=== PATIENT | male | born 1935 | race Caucasian/White ===

== ENCOUNTER 2019-05-26 07:46 | Outpatient (CLI) | payer MEDICARE | END 2019-05-26 23:59 | disposition home or self-care (01) | LOC: CVU 07:46 | PROVIDERS: ATTEND Internal Medicine | DX: I70.203 Unspecified atherosclerosis of native arteries of extremities, bilateral legs (principal); I25.84 Coronary atherosclerosis due to calcified coronary lesion; R60.0 Localized edema | CPT/HCPCS: 93922; 93925; 93970 ==

== ENCOUNTER 2020-08-20 08:23 | Inpatient (IN) | payer MEDICARE ==
[~2020-08-20] VITALS: Ht 175.3 cm; Wt 78.7 kg
--- NOTE | 2020-08-20 08:35 | NUR ---
THIS IS A 85 YO M BIB EMS FROM HOME W/ C/O ONSET HEMATAEMESIS AND HEMATCHEZIA STARTING THIS MORNING AT 0700. PT DENIES INJURY, OR HX OF SAME. PT REPORTS EMESIS BRIGHT RED AND STOOL BRIGHT RED MIXED W/ BLACK. PT REPROTS TAKING DAILY ASPIRIN AND IBUPROFEN. PT TACHYCARDIC, OTHER VS WDL. RESP EVEN AND UNLABORED, NADN. PT RESTING ON GURNEY W/ CALL LIGHT IN REACH, SIDE RAILS UPX2, AWAITING ED EVAL.
[2020-08-20] MEDS ORDERED: PANTOPRAZOLE 80 MG in SODIUM CHLORIDE 0.9% 50 ML IVPB ONE (09:00)
[2020-08-20] MEDS ORDERED: SODIUM CHLORIDE 0.9% 1,000ML IVBOLUS ONE (09:00)
[2020-08-20] MEDS ORDERED: ONDANSETRON 2MG/ML, 2ML IVPush ONE (09:00)
[2020-08-20] MEDS ORDERED: OCTREOTIDE 100MCG/ML, 1ML (0.1MG/ML) IV ONE (09:00)
[2020-08-20] MEDS ORDERED: SODIUM CHLORIDE FLUSH 10ML SYR IVF ONE (09:00)
[2020-08-20] MEDS ORDERED: OCTREOTIDE 100MCG/ML, 1ML (0.1MG/ML) ONE (09:09)
[2020-08-20] MEDS ORDERED: ONDANSETRON 2MG/ML, 2ML ONE (09:10)
--- NOTE | 2020-08-20 09:15 | NUR ---
JESÚS VASQUEZ FROM PHARMACY.
--- NOTE | 2020-08-20 09:15 | NUR ---
2ND PIV STARTED B [employer] STUDENT AND LABS DRAWN UNDER SUPERVISION OF THIS RN.
[2020-08-20 09:19] LABS: MEAN CORPUSCULAR HEMOGLOBIN 32.8 pg (27.5-34.5); MEAN CORPUSCULAR HGB CONC 33.3 g/dL (33.2-36.2); MEAN PLATELET VOLUME 8.5 fL (7.4-10.4); PLATELET COUNT 834 x10^3/uL (130-400); RED BLOOD COUNT 4.56 x10^6/uL (4.38-5.82); RED CELL DISTRIBUTION WIDTH 17.9 % (9.4-14.8)
--- NOTE | 2020-08-20 09:22 | NUR ---
PT MEDICATED PER EMAR. AWAITING MEDS FROM PHARMACY.
--- NOTE | 2020-08-20 09:23 | NUR ---
PT TO RAD.
[2020-08-20 09:26] LABS: ALANINE AMINOTRANSFERASE 29 U/L (12-78); ALBUMIN 3.5 g/dL (3.4-5.0); ANION GAP 9 mmol/L (5-15); CALCIUM 8.7 mg/dL (8.5-10.1); CHLORIDE 104 mmol/L (98-107); CREATININE 1.08 mg/dL (0.7-1.3)
[2020-08-20 09:29] LABS: ALKALINE PHOSPHATASE 62 U/L (45-117); BILIRUBIN,TOTAL 1.2 mg/dL (0.2-1.0); TOTAL PROTEIN 6.7 g/dL (6.4-8.2)
[2020-08-20 09:37] LABS: INTERNATIONAL NORMALIZED RATIO 1.24 (0.93-1.1); PROTHROMBIN TIME 13.1 Seconds (9.6-11.5)
[2020-08-20] MEDS: PANTOPRAZOLE 80 MG in SODIUM CHLORIDE 0.9% 100 ML IV SCH ×2 (09:59→19:39)
[2020-08-20] MEDS: OCTREOTIDE 500 MCG in SODIUM CHLORIDE 0.9% 99 ML IV PRN ×2 (10:10→19:39)
[2020-08-20 10:21] LABS: MD YES
[2020-08-20 10:22] LABS: BAND#(MANUAL) 0.85 x10^3/uL; BANDS%(MANUAL) 6 % (0-7); LYMPH#(MANUAL) 0.42 x10^3/uL (1-3.4); LYMPHS% (MANUAL) 3 % (22-44); MONOS#(MANUAL) 0.85 x10^3/uL (0.3-2.7); MONOS% (MANUAL) 6 % (2-9); SEG#(MANUAL) 11.99 x10^3/uL (1.8-6.8); SEGS% (MANUAL) 85 % (42-75)
[2020-08-20 10:23] LABS: <PLATELET ESTIMATE> INCREASED; <RBC MORPHOLOGY> NORMAL; LARGE PLATELETS 1+
[2020-08-20] MEDS ORDERED: HYDROCHLOROTHIAZIDE (10:37)
[2020-08-20] MEDS ORDERED: ASPI81TA45 PO (10:37)
[2020-08-20] MEDS ORDERED: THYROID (10:37)
--- NOTE | 2020-08-20 12:53 | NUR ---
HOSPITAL BED REQUESTED.
--- NOTE | 2020-08-20 13:10 | NUR ---
REPORT GIVEN TO RUTH STREETER. PT RESTING ON Tasted MenuRNEY W/ CALL LIGHT IN REACH, RESP EVEN AND UNLABORED, MAMIE.
[2020-08-20] MEDS ORDERED: ONDANSETRON 2MG/ML, 2ML IVPush PRN (13:30)
[2020-08-20] MEDS ORDERED: ACETAMINOPHEN 325 MG TABLET PO PRN (13:30)
--- NOTE | 2020-08-20 13:43 | NUR ---
RECEIVED REPORT FROM FERDINAND WARD. PT RESTING ON PORSCHEJACKY. NADN. SCHROEDER.
--- NOTE | 2020-08-20 14:18 | NUR ---
Note drake in EDM - 08/20/20 at 1421 by BNICHOLS REPORT TO FERDINAND VÁSQUEZ IN [employer]. ALL QUESTIONS ANSWERED. AWAITING PT TRANSPORT.
--- NOTE | 2020-08-20 14:31 | NUR ---
PT MOVED FROM [facility] TO [facility] BED.
[2020-08-20] MEDS: ENALAPRILAT 1.25 MG/ML, 2ML IVPush SCH ×2 (15:07→19:30)
--- NOTE | 2020-08-20 15:08 | NUR ---
PT RESTING IN BED. NADN. VSS.
[2020-08-20] MEDS: LACTATED RINGERS 1,000 ML IV SCH (15:36)
--- NOTE | 2020-08-20 16:28 | NUR ---
PT RESTING IN BED. NADN. VSS. AND PT AWARE OF NPO STATUS.
--- NOTE | 2020-08-20 17:22 | NUR ---
PT RESTING IN BED. NADN. VSS.
--- NOTE | 2020-08-20 18:14 | NUR ---
PT RESTING IN BED. NADN. VSS.
--- NOTE | 2020-08-20 18:34 | NUR ---
PHARMACY NOTIFIED OF NEED FOR OCTROTIDE AND PANTOPROZOLE GTT.
--- NOTE | 2020-08-20 19:06 | NUR ---
REPORT GIVEN TO RACHEL WATTERS RN.
--- NOTE | 2020-08-20 19:15 | NUR ---
REPORT RECEIVED FROM RUTH STREETER
--- NOTE | 2020-08-20 19:25 | NUR ---
pt positioning for comfort.
--- NOTE | 2020-08-20 19:41 | NUR ---
PT IN HOSPITAL BED, DENIES PAIN, WAITING TO BE SEEN BY GI. CALL LIGHT WITHIN REACH.
--- NOTE | 2020-08-20 21:19 | NUR ---
assisted primary RN with care assisted pt to bedside commode. +dark bloody loose BM. well tolerated asssited pt back to bed. fall precautions in place
--- NOTE | 2020-08-20 21:46 | NUR ---
PT SLEEPING. CALL LIGHT WITHIN REACH
--- NOTE | 2020-08-20 23:04 | NUR ---
PT SLEEPING, CALL LIGHT WITHIN REACH
--- NOTE | 2020-08-21 00:24 | NUR ---
PT SLEEPING, CALL LIGHT WITHIN REACH
--- NOTE | 2020-08-21 00:39 | NUR ---
PT JUMPED OUT OF BED WITHOUT CALLING TO USE BSC. PT INSTRUCTED TO USE CALL LIGHT. PT EXPLAINED HE WAVED TO A STAFF MEMBER WALKING BY AND THOUGHT IT WOULD BE OKAY TP GET UP SINCE HE WAVED. IV IN R ARM PULLED OUT. PT VERBALIZED HE WOULD USE CALL LIGHT AND NOT WAVE NEXT TIME.
[2020-08-21] MEDS: ENALAPRILAT 1.25 MG/ML, 2ML IVPush SCH ×4 (01:30→20:15)
--- NOTE | 2020-08-21 01:30 | NUR ---
PT RESTING, CALL LIGHT WITHIN REACH
[2020-08-21 01:41] LABS: ALBUMIN 2.8 g/dL (3.4-5.0); ANION GAP 5 mmol/L (5-15); CALCIUM 7.9 mg/dL (8.5-10.1); CHLORIDE 108 mmol/L (98-107)
[2020-08-21 01:53] LABS: ALANINE AMINOTRANSFERASE 16 U/L (12-78); ALKALINE PHOSPHATASE 48 U/L (45-117); BILIRUBIN,TOTAL 1.2 mg/dL (0.2-1.0); CREATININE 1.02 mg/dL (0.7-1.3); TOTAL PROTEIN 5.2 g/dL (6.4-8.2)
--- NOTE | 2020-08-21 03:02 | NUR ---
PT SLEEPING. CALL LIGHT WITHIN REACH
--- NOTE | 2020-08-21 04:47 | NUR ---
X2 BM THIS SHIFT, MISSAEL RED BLOOD PRESENT WITH SOME BLACK STOOL. PT DENIES PAIN. SBA TO BSC
[2020-08-21] MEDS: OCTREOTIDE 500 MCG in SODIUM CHLORIDE 0.9% 99 ML IV PRN (05:11)
[2020-08-21] MEDS: PANTOPRAZOLE 80 MG in SODIUM CHLORIDE 0.9% 100 ML IV SCH (05:11)
--- NOTE | 2020-08-21 06:16 | NUR ---
PT RESTING, CALL LIGHT WITHIN REACH
--- NOTE | 2020-08-21 06:57 | NUR ---
RECEIVED REPORT FROM SRAVANTHI RN
--- NOTE | 2020-08-21 07:22 | NUR ---
PT RESTING IN HOSPITAL BED. PT AWAKENS TO RN IN ROOM. PT STATES HE FEELS OK RIGHT NOW. PT MADE COMFORTABLE IN BED.
--- NOTE | 2020-08-21 07:30 | NUR ---
VASOTEC NOT GIVEN DUE TO NOT MEETING PARAMETERS
[2020-08-21] MEDS ORDERED: CEFTRIAXONE PMX 2GM/50ML 50 ML ONE (09:32)
[2020-08-21] MEDS: CEFTRIAXONE PMX 2GM/50ML 50 ML IVPB SCH (09:38)
--- NOTE | 2020-08-21 10:30 | NUR ---
PT RESTING IN [facility] WITH TV ON. PT PROVIDED CELL PHONE TO SPEAK WITH SPOUSE. AWAITING GI FOR UPPER ENDOSCOPY.
[2020-08-21] MEDS ORDERED: MIDAZOLAM 1 MG/ML, 2ML ONE (11:25)
[2020-08-21] MEDS ORDERED: FENTANYL PF 100 MCG/2ML ONE (11:26)
--- NOTE | 2020-08-21 11:30 | NUR ---
ENDOSCOPY BEDSIDE FOR PROCEDURE.
--- NOTE | 2020-08-21 12:05 | NUR ---
ENDOSCOPY PROCEDURE COMPLETED. PT AWAKE AFTER PROCUDURE. VSS.
--- NOTE | 2020-08-21 13:33 | NUR ---
TASK RN NOTE: PT SITTING UP IN BED, RESPIRATIONS EVEN AND UNLABORED ON RA, NAD NOTED AT THIS TIME. BP MED HELD DUE TO BP. AT BEDSIDE. IVF INFUSING PER EMAR.
--- NOTE | 2020-08-21 16:16 | NUR ---
PHONE REPORT GIVEN TO Jason FALL.
[2020-08-21] MEDS: LACTATED RINGERS 1,000 ML IV SCH (18:14)
[2020-08-21 20:14] VITALS: BP 101/54
[2020-08-22 01:06] VITALS: BP 114/63
[2020-08-22] MEDS: ENALAPRILAT 1.25 MG/ML, 2ML IVPush SCH ×3 (01:30→13:16)
[2020-08-22 07:44] VITALS: BP 122/69
[2020-08-22] MEDS: LACTATED RINGERS 1,000 ML IV SCH (08:14)
[2020-08-22] MEDS: CEFTRIAXONE PMX 2GM/50ML 50 ML IVPB SCH (09:36)
[2020-08-22 12:02] VITALS: BP 95/52
[2020-08-22] MEDS ORDERED: OMEP-110 PO (14:14)
== END 2020-08-22 16:13 | disposition home or self-care (01) | DRG 379 ==
LOC: ED 09:14 → EDIP 10:07 → SUATTDRO 12:33 → UNDODISIN 08-21 17:06 → 4WST 08-21 17:27 → DCLOUNGE 08-22 16:05
PROVIDERS: ADMIT Internal Medicine; ATTEND Internal Medicine
PROC: 0DJ08ZZ Inspection of Upper Intestinal Tract, Via Natural or Artificial Opening Endoscopic (ICD-10-PCS; principal; 2020-08-21 11:30)
DX: K92.0 Hematemesis (principal); D72.825 Bandemia; E03.9 Hypothyroidism, unspecified; F10.229 Alcohol dependence with intoxication, unspecified; F17.200 Nicotine dependence, unspecified, uncomplicated; I10 Essential (primary) hypertension; Z20.828 Contact with and (suspected) exposure to other viral communicable diseases; Z79.82 Long term (current) use of aspirin; Z79.899 Other long term (current) drug therapy
CPT/HCPCS: 36415; 74021; 80053; 83690; 84443; 85018; 85025; 85610; 85730; 86850; 86900; 87040; 87635; 96361; 96365; 96375; 99152; 99153; 99285; G0378; J0696; J2354; J2405; C9113; J7030; J7120